=== PATIENT | male | born 2000 | race African-American/Black ===

== ENCOUNTER 2024-03-12 12:02 | Emergency (ER) | payer BC, SELFPAY ==
[2024-03-12 12:05] VITALS: BP 147/83; PULSE 64; TEMP 36.8; O2SAT 100; BMI 39.7
--- NOTE | 2024-03-12 12:12 | XR_ITS ---
The [address] [address] Patient Name: ROLANDA HUERTA MRN: [id number] date: 2000 Sex: M Assigned Patient Location: ER Current Patient Location: ER Accession/Order Number: [id number] Exam Date: 03/12/2024 12:20 Report Date: 03/12/2024 13:02 At the request of: ROMERO CARD Procedure: XR knee RT 3V EXAM: XR knee RT 3V HISTORY: pain, hit knee to knee with somebody COMPARISON: None. TECHNIQUE: AP, oblique, lateral x-ray right knee FINDINGS: No fracture or focal bone lesion. Normal joint spaces, smooth articular surfaces. Moderate size joint effusion. Soft tissue prominence prepatellar area could reflect fluid in the bursa. No intra-articular or periarticular calcification or loose body. Osseous density adjacent to the anterior tibial tubercle smooth margins typical of a chronic finding. No adjacent soft tissue swelling. XR/XR knee RT 3V IMPRESSION: 1 negative for fracture. 2. Moderate joint effusion. 3. Prominent prepatellar soft tissues. Electronically authenticated by: LAMONTE BLOCK Date: 03/12/2024 13:02
--- NOTE | 2024-03-12 12:14 | ED.LOWEXI1 ---
HPI HPI - Extremity Injury (Lower) General Chief Complaint: Extremity Injury, Lower Stated Complaint: LOWER EXTREMTY INJURY Time Seen by Provider: 03/12/24 12:04 Source: patient Mode of arrival: walk-in History of Present Illness HPI Narrative: 23-year-old male presents for right knee pain. He was playing basketball last night and hit knee to knee with another person. He has pain on the lateral aspect it hurts more to bend it. He has been able to walk without difficulty. No other injury was sustained and the pain is mild. Related Data Previous Rx's ?Medication ?Instructions ?Recorded ibuprofen 800 mg tablet 800 mg PO Q8H PRN pain #20 tabs 03/12/24 Allergies Allergy/AdvReac Type Severity Reaction Status Date / Time No Known Drug Allergies Allergy Verified 03/12/24 12:08 Opioid HPI Opioid Management Most Recent Pain and Opioid Data: No Data to Display Review of Systems ROS Narrative A ten point review of systems is negative except as noted above. Exam Narrative Exam Narrative: Nurses note and vital signs reviewed and patient is not hypoxic. General: The patient appears well and in no apparent distress. Patient is resting comfortably on cart. Skin: Warm, dry, no pallor noted. There is no rash noted. Head: Normocephalic, atraumatic Eye: Normal conjunctiva, no drainage Ears, Nose, Mouth, and Throat: oral mucosa is moist. Nares patent. Cardiovascular: Regular Rate and Rhythm Respiratory: Patient is in no distress, no accessory muscle use, lungs are clear to auscultation, no wheezing, rales or rhonchi Back: non-tender GI: Soft and nontender Musculoskeletal: The right knee has no obvious deformity. His gait is normal. There does not seem to be any tenderness on palpation. No erythema or break in the skin. The knee joint is stable. He has no focal area of tenderness to palpation. Neurological: A&O, normal speech Psychiatric: Cooperative Constitutional Vital Signs, click to edit/add: Last Vital Signs Temp 98.3 F 03/12/24 12:05 Pulse 64 03/12/24 12:05 Resp 18 03/12/24 12:05 BP 147/83 H 03/12/24 12:05 Pulse Ox 100 03/12/24 12:05 O2 Del Method Room Air 03/12/24 12:05 Course Vital Signs Vital signs: Vital Signs Temperature 98.3 F 03/12/24 12:05 Pulse Rate 64 03/12/24 12:05 Respiratory Rate 18 03/12/24 12:05 Blood Pressure 147/83 H 03/12/24 12:05 Pulse Oximetry 100 03/12/24 12:05 Oxygen Delivery Method Room Air 03/12/24 12:05 Temperature 98.3 F 03/12/24 12:05 Pulse Rate 64 03/12/24 12:05 Respiratory Rate 18 03/12/24 12:05 Blood Pressure 147/83 H 03/12/24 12:05 Pulse Oximetry 100 03/12/24 12:05 Oxygen Delivery Method Room Air 03/12/24 12:05 MDM - Extremity Injury (Lower) MDM Narrative Medical decision making narrative: Moderate joint effusion is identified on the x-ray. Gagan wrap applied and application checked by me and found to be appropriate, he is neurovascular intact and he is placed on crutches. Orthopedic appointment is made for him for tomorrow. Treatment diagnosis and follow-up were discussed with the patient. Differential Diagnosis Differential diagnosis: Likely acute internal derangement of knee and other (Effusion, fracture) Imaging Data Knee x-ray: Radiologist's impression: ITS Impressions Knee X-Ray 03/12/24 12:12 IMPRESSION: 1 negative for fracture. 2. Moderate joint effusion. 3. Prominent prepatellar soft tissues. Electronically authenticated by: LAMONTE BLOCK Date: 03/12/2024 13:02 Discharge Plan Discharge Stand Alone Forms: Portal Instructions Chief Complaint: Extremity Injury, Lower Clinical Impression: Right knee sprain Patient Disposition: Home, Self-Care Time of Disposition Decision: 13:19 Condition: Good Mode of Transportation: Private Vehicle Prescriptions / Home Meds: New ibuprofen 800 mg tablet 800 mg PO Q8H PRN (Reason: pain) Qty: 20 0RF Print Language: Luxembourgish Instructions: Knee Sprain (ED), Crutch Instructions (ED) Additional Instructions: See Dr. Kirk at 10:30 AM tomorrow Referrals: Roque Thomas MD [Primary Care Provider] - 1 week Simone Kirk MD [Physician] - 1 week
== END 2024-03-12 13:35 | disposition home or self-care (01) ==
PROVIDERS: Emergency Provider Emergency Medicine; PCP Family Medicine
DX: S83.91XA Sprain of unspecified site of right knee, initial encounter (principal); W51.XXXA Accidental striking against or bumped into by another person, initial encounter; Y93.67 Activity, basketball
CPT/HCPCS: 73562; 99283